=== PATIENT | male | born 1990 | race Caucasian/White ===

== ENCOUNTER 2018-06-05 10:13 | Emergency (ER) | payer SELFPAY ==
[2018-06-05 10:17] VITALS: BP 136/89
--- NOTE | 2018-06-05 11:15 | RADIOLOGY REPORT (SQ) ---
EXAM DESCRIPTION: HAND LEFT 3 VIEWS COMPLETED DATE/TIME: 06/05/2018 10:54 am REASON FOR STUDY: hand injury COMPARISON: None. EXAM PARAMETERS: NUMBER OF VIEWS: Three views. TECHNIQUE: AP, lateral and oblique radiographic images acquired of the left hand. LIMITATIONS: None. FINDINGS: MINERALIZATION: Normal. BONES: Oblique, comminuted, intra-articular fracture of the base of the 5th metacarpal on the radial aspect. JOINTS: No effusions. SOFT TISSUES: Soft tissue swelling overlying the 5th metacarpal. No radiopaque foreign body. No sub cutaneous gas. OTHER: No other significant finding. IMPRESSION: Oblique, comminuted, intra-articular fracture of the base of the 5th metacarpal with ove rlying soft tissue swelling. TECHNICAL DOCUMENTATION: JOB ID: [id number] [employer]- All Rights Reserved Reading location - IP/workstation name: [email or web address]
[2018-06-05] MEDS ORDERED: HYDROCODONE/ACETAMINOPHEN 5-325 MG TABLET PO ONE (11:18)
[2018-06-05] MEDS ORDERED: IBUPROFEN 600 MG TABLET PO ONE (11:18)
--- NOTE | 2018-06-05 11:31 | ER Document Report ---
HPI - HPI Pain Level: 3 Notes: Patient is an otherwise healthy 28-year-old male who presents with chief complaint of left hand pain. Patient reports he punched a wall approximately 1 week ago however he did not seek treatment because he was in long term. Patient reports continued pain. - MUSCULOSKELETAL Musculoskeletal: REPORTS: Extremity pain - L hand Past Medical History - General Information source: Patient - Social History Smoking Status: Current Every Day Smoker Chew tobacco use (# tins/day): No Frequency of alcohol use: None Drug Abuse: None Family History: Reviewed & Not Pertinent Patient has suicidal ideation: No Patient has homicidal ideation: No - Medical History Medical History: Negative Renal/ Medical History: Denies: Hx Peritoneal Dialysis Past Surgical History: Reports: Hx Orthopedic Surgery - L hand, R wrist Vertical Provider Document - CONSTITUTIONAL Notes: PHYSICAL EXAMINATION: GENERAL: Well-appearing, well-nourished and in no acute distress. HEAD: Atraumatic, normocephalic. EYES: Pupils equal round extraocular movements intact, conjunctiva are normal. ENT: Nares patent NECK: Normal range of motion LUNGS: No respiratory distress Musculoskeletal: Normal range of motion, swelling noted to dorsal surface of left hand near the fifth metacarpal. Cap refill less than 3 seconds, normal motor and sensation. NEUROLOGICAL: Normal speech, normal gait. PSYCH: Normal mood, normal affect. SKIN: Warm, Dry, normal turgor, no rashes or lesions noted. - INFECTION CONTROL TRAVEL OUTSIDE OF THE [place] IN LAST 30 DAYS: No Course - Re-evaluation Re-evalutation: 06/05/18 11:25 X-ray reveals an oblique, comminuted, intra-articular fracture of the base of the fifth metacarpal on the radial aspect. No effusions and no subcutaneous gas. Will place patient in a ulnar gutter splint and refer to orthopedics. - Vital Signs Vital signs: Temp Pulse Resp BP Pulse Ox 97.7 F 73 14 136/89 H 100 06/05/18 10:16 06/05/18 10:16 06/05/18 10:16 06/05/18 10:16 06/05/18 10:16 Procedures - Immobilization left hand Pre-Proc Neuro Vasc Exam: Normal Immobilizer type: Ulnar Performed by: PCT Post-Proc Neuro Vasc Exam: Normal Discharge - Discharge Clinical Impression: Boxer's metacarpal fracture, neck, closed Qualifiers: Encounter type: initial encounter Qualified Code(s): S62.339A - Displaced fracture of neck of unspecified metacarpal bone, initial encounter for closed fracture Condition: Stable Disposition: HOME, SELF-CARE Additional Instructions: Fractured Fifth Metacarpal (Boxer's) You have a fracture of the fifth metacarpal bone in the hand, often called a Boxer's Fracture. The fracture is usually caused by striking the knuckle against a hard surface -- such as hitting a wall with the fist. This fracture heals well. Some degree of angle in the fracture is perfectly acceptable, resulting in only a slightly rounder knuckle. Your physician has determined whether your fracture could benefit from "setting", and has outlined a treatment plan for you. The usual treatment is splinting for four to six weeks -- a cast is not usually necessary. At first, the injury should be elevated and ice packed. Contact the doctor at once if swelling or pain becomes severe, or if numbness develops. Ice & Elevation Apply ice packs frequently against the painful area. Many different schedules are recommended, such as "20 minutes on, 20 minutes off" or "one hour ice, two hours rest." If you need to work, you may need to go longer between ice treatments. You should plan to have the area ice packed AT LEAST one- fourth of the time. The ice should be applied over the wrap, tape, or splint, or over a layer of cloth -- not directly against the skin. Some ice bags have a built-in cloth and can be put directly on the skin. Your injured part should be elevated as much as possible over the next 48 hours. Try to keep the injury above the level of the heart. Avoid use of the injured area. Elevation and rest will decrease the swelling. Please follow-up with orthopedics as discussed, call them tomorrow to schedule an appointment. Please take ibuprofen 600 mg every 6 hours for the next several days. Use ice and elevation as outlined above. Use the narcotic pain medication only for severe pain. Prescriptions: Hydrocodone/Acetaminophen [Hydrocodon-Acetaminophen 5-325] 1 each PO Q4H PRN # 10 tablet PRN Reason: For Pain Referrals: [facility], [ACTIVE STAFF] - Follow up as needed
== END 2018-06-05 11:49 | disposition home or self-care (01) ==
LOC: ER 10:13
DX: S62.339A Displaced fracture of neck of unspecified metacarpal bone, initial encounter for closed fracture (principal); W22.01XA Walked into wall, initial encounter; F17.200 Nicotine dependence, unspecified, uncomplicated
CPT/HCPCS: 99283